=== PATIENT | male | born 1965 | race Two or more races ===

== ENCOUNTER 2018-10-18 08:36 | Outpatient (CLI) | payer OTHER ==
[~2018-10-18 08:36] MED LIST: LAMICTAL25 MG; WELLBUTRIN XL300 MG PO
[2018-10-21] MEDS ORDERED: ESTAZOLAM2 MG PO (16:18)
[2018-10-21] MEDS ORDERED: WELLBUTRIN SR150 MG PO (16:18)
[2018-10-21] MEDS ORDERED: LAMICTAL200 M1 PO (16:19)
== END 2018-10-18 08:39 | disposition home or self-care (01) ==
LOC: RAD 08:36
DX: Z76.89 Persons encountering health services in other specified circumstances (principal)

== ENCOUNTER → 2018-10-18 09:11 | Outpatient (CLI) | payer OTHER ==
[~2018-10-18 09:11] MED LIST changes: +ESTAZOLAM2 MG PO; +LAMICTAL200 M1 PO; +WELLBUTRIN SR150 MG PO
== END | disposition home or self-care (01) ==
LOC: EKG 09:11 → LAB 09:11
DX: I49.8 Other specified cardiac arrhythmias (principal)

== ENCOUNTER 2018-10-25 05:40 | Inpatient (IN) | payer OTHER ==
[~2018-10-25] VITALS: Ht 188 cm; Wt 95.3 kg
== END 2018-10-29 18:13 | disposition home or self-care (01) | DRG 470 ==
LOC: O/R 05:40 → SURH 05:40 → SURG 07:00 → SURH 13:09
PROVIDERS: ADMIT Orthopaedic Surgery
PROC: 4A033R1 Measurement of Arterial Saturation, Peripheral, Percutaneous Approach (ICD-10-PCS; 2018-10-25)
PROC: 0SRC0J9 Replacement of Right Knee Joint with Synthetic Substitute, Cemented, Open Approach (ICD-10-PCS; principal; 2018-10-25 07:00)
PROC: 30233N1 Transfusion of Nonautologous Red Blood Cells into Peripheral Vein, Percutaneous Approach (ICD-10-PCS; 2018-10-28)
PROC: BQ27ZZZ Computerized Tomography (CT Scan) of Right Knee (ICD-10-PCS; 2018-10-28)
DX: M17.11 Unilateral primary osteoarthritis, right knee (principal); J45.21 Mild intermittent asthma with (acute) exacerbation; D62 Acute posthemorrhagic anemia; M25.461 Effusion, right knee

== ENCOUNTER 2018-11-03 15:16 | Outpatient (CLI) | payer OTHER | END 2018-11-03 15:27 | disposition home or self-care (01) | LOC: LAB 15:16 | DX: D64.89 Other specified anemias (principal) ==

== ENCOUNTER 2018-11-08 07:51 | Outpatient (CLI) | payer OTHER | END 2018-11-08 08:00 | disposition home or self-care (01) | LOC: LAB 07:51 | DX: D64.89 Other specified anemias (principal); M06.4 Inflammatory polyarthropathy ==

== ENCOUNTER → 2018-11-16 15:26 | Outpatient (CLI) | payer OTHER | END | disposition home or self-care (01) | LOC: LAB 15:26 | DX: D64.89 Other specified anemias (principal); M06.4 Inflammatory polyarthropathy ==

== ENCOUNTER 2019-04-21 09:00 | Outpatient (CLI) | payer OTHER | END 2019-04-21 17:16 | disposition home or self-care (01) | LOC: LAB 09:00 | DX: E56.1 Deficiency of vitamin K (principal); E21.2 Other hyperparathyroidism; M85.88 Other specified disorders of bone density and structure, other site; E88.89 Other specified metabolic disorders; M81.8 Other osteoporosis without current pathological fracture; E55.9 Vitamin D deficiency, unspecified ==

== ENCOUNTER 2019-05-04 10:48 | Outpatient (CLI) | payer OTHER | END 2019-05-04 11:11 | disposition home or self-care (01) | LOC: NUCLEAR 10:48 | DX: M81.0 Age-related osteoporosis without current pathological fracture (principal) ==